=== PATIENT | male | born 1960 | race Caucasian/White ===

== ENCOUNTER 2022-11-20 04:28 | Day surgery (SDC) | payer OTHER ==
[2022-11-14 17:22] VITALS: BMI 29.7
[2022-11-20] MEDS ORDERED: MIDAZOLAM HCL 2 MG/2 ML SINGLE DOSE VIAL ONE (07:16)
[2022-11-20] MEDS ORDERED: PROPOFOL 40 ML ONE (07:16)
[2022-11-20] MEDS ORDERED: SUCCINYLCHOLINE CHLORIDE 200 MG/10 ML SYRINGE ONE (07:16)
[2022-11-20] MEDS ORDERED: LIDOCAINE HCL 1%, 10 MG/ML (20ML VIAL) ONE (07:16)
[2022-11-20] MEDS ORDERED: BUPIVACAINE HCL/PF 0.5% (5MG/ML) 10 ML VIAL ONE (07:16)
[2022-11-20] MEDS ORDERED: ceFAZolin SODIUM 1 GM VIAL IVPB ONE (07:45)
[2022-11-20] MEDS ORDERED: PROPOFOL 20 ML ONE ×2 (07:47→08:01)
[2022-11-20] MEDS ORDERED: BUPIVACAINE HCL/PF 0.5% (5MG/ML) 10 ML VIAL IJ ONE (08:20)
[2022-11-20] MEDS ORDERED: BACITRACIN 15 GM TUBE TOPICAL OINTMENT TP ONE (08:27)
[2022-11-20] MEDS ORDERED: oxyCODONE HCL 5 MG TABLET PO PRN ×2 (08:40→08:43)
[2022-11-20] MEDS ORDERED: ONDANSETRON 4 MG/2 ML VIAL IVPUSH PRN (08:43)
[2022-11-20] MEDS ORDERED: ACETAMINOPHEN 500 MG TABLET (FP) PO PRN (08:43)
[2022-11-20] MEDS ORDERED: DEXTROSE 5%-0.45% SALINE 1,000 ML IV SCH (08:45)
[2022-11-20 10:50] VITALS: BP 122/78; RESP 20; TEMP 97.8
[2022-11-20 15:37] VITALS: PULSE 64
== END 2022-11-20 11:30 | disposition home or self-care (01) ==
LOC: JASU-SURG 04:28
PROVIDERS: ATTEND Urology
PROC: 0VB70ZZ Excision of Left Tunica Vaginalis, Open Approach (ICD-10-PCS; principal; 2022-11-20 07:30)
DX: N43.3 Hydrocele, unspecified (principal)
CPT/HCPCS: 88302-TC; 94760